=== PATIENT | male | born 1965 | race American Indian/Alaskan Native ===

== ENCOUNTER 2017-03-14 15:54 | Emergency (ER) | payer SELFPAY ==
[2017-03-14 16:02] VITALS: BP 153/91; PULSE 100; RESP 20; TEMP 99; O2SAT 100
--- NOTE | 2017-03-14 16:30 | C.PDOC ---
History Of Present Illness 52 y/o male presents to ED with complaints of toothache and swelling for 5 days. Patient states he tried to go to dentist today but was unable to secondary to insurance. Patient states he noted cracked tooth before but swelling began recently. denies fever, sob, difficulty swallowing and has not taken pain medication. No other complaints at this time. Time Seen by Provider: 03/14/17 16:10 Chief Complaint (Nursing): Dental Pain History Per: Patient History/Exam Limitations: no limitations Onset/Duration Of Symptoms: Days Current Symptoms Are (Timing): Still Present Past Medical History Reviewed: Historical Data, Nursing Documentation, Vital Signs Vital Signs: Last Vital Signs Temp 99 F 03/14/17 15:58 Pulse 100 H 03/14/17 15:58 Resp 20 03/14/17 15:58 BP 153/91 H 03/14/17 15:58 Pulse Ox 100 03/16/17 21:35 Family History: States: No Known Family Hx - Social History Hx Alcohol Use: Yes Hx Substance Use: No - Immunization History Hx Tetanus Toxoid Vaccination: No Hx Influenza Vaccination: No Hx Pneumococcal Vaccination: No Review Of Systems Except As Marked, All Systems Reviewed And Found Negative. Constitutional: Negative for: Fever, Chills ENT: Positive for: Mouth Pain Respiratory: Negative for: Shortness of Breath Skin: Negative for: Rash Physical Exam - Physical Exam Appears: Well, Non-toxic, No Acute Distress Skin: Normal Color, Warm Head: Atraumatic, Normacephalic Eye(s): bilateral: Normal Inspection, EOMI Nose: Normal Oral Mucosa: Moist Teeth: Tender To Palpation, Other (Poor dentition, missing most of teeth) Gingiva: Erythema, Swelling, Tender, Abscess (To right maxillary premolar) Throat: Normal, No Erythema, No Exudate Neck: Normal ROM, Supple Lymphatic: Normal Exam Chest: Symmetrical Cardiovascular: Rhythm Regular Respiratory: Normal Breath Sounds, No Accessory Muscle Use Neurological/Psych: Oriented x3, Normal Speech ED Course And Treatment O2 Sat by Pulse Oximetry: 100 (RA) Pulse Ox Interpretation: Normal Progress Note: Patient instructed to follow up with dentist in 1-2 days. Discussed signs and symtpoms of concern and to return to ER if they arise. CAse discussed with Dr. Carvalho who agreed with plan and treatment. Reevaluation Time: 16:15 Reassessment Condition: Improved Disposition - Disposition Referrals: [facility] [Outside] Katarzyna Hayes DMD [Staff Provider] - Disposition: HOME/ ROUTINE Disposition Time: 16:27 Condition: STABLE Additional Instructions: Follow up with dentist in 1-3 days without fail for further evaluation. Take medications as prescribed. Return to the emergency department at any time if symptoms persist or worsen. Prescriptions: Clindamycin [Cleocin] 300 mg PO QID #28 cap Naproxen [Naprosyn] 1 tab PO BID PRN #20 tab PRN Reason: Pain traMADol [Ultram] 50 mg PO Q8 #20 tab Instructions: Dental Abscess (ED) - Clinical Impression Clinical Impression: Dental abscess - Scribe Statement The provider has reviewed the documentation as recorded by the Katiblaurie Ngo All medical record entries made by the Katiblaurie were at my direction and personally dictated by me. I have reviewed the chart and agree that the record accurately reflects my personal performance of the history, physical exam, medical decision making, and the department course for this patient. I have also personally directed, reviewed, and agree with the discharge instructions and disposition.
== END 2017-03-14 16:37 | disposition home or self-care (01) ==
LOC: C.ER 15:54
DX: K04.7 Periapical abscess without sinus (principal)

== ENCOUNTER 2017-11-26 14:49 | Emergency (ER) | payer MEDICAID ==
[2017-11-26] MEDS ORDERED: Sodium Chloride 0.9% 1,000 ML IV ONE (15:20)
[2017-11-26 15:42] LABS: BASO # 0.1 K/uL (0.0-0.2); BASO % 0.8 % (0.0-2.0); EOS # 0.1 K/uL (0.0-0.7); EOS % 1.4 % (0.0-4.0); HEMOGLOBIN 14.6 g/dL (12.0-18.0); LYMPH # 1.9 K/uL (1.0-4.3); LYMPH % 29.1 % (20.0-40.0); MEAN CELL VOLUME 73.9 fL (80.0-94.0); MEAN CORPUSCULAR HEMOGLOBIN 25.3 pg (27.0-31.0); MEAN CORPUSCULAR HGB CONC 34.3 g/dL (33.0-37.0); MEAN PLATELET VOLUME 8.6 fL (7.2-11.7); MONO # 0.6 K/uL (0.0-0.8); MONO % 8.5 % (0.0-10.0); NEUT # 3.9 K/uL (1.8-7.0); NEUT % 60.2 % (50.0-75.0); NRBC % 0.4 % (0.0-2.0); RBC 5.78 Mil/uL (4.40-5.90); RED CELL DISTRIBUTION WIDTH 12.8 % (11.5-14.5); WHITE BLOOD COUNT 6.5 K/uL (4.8-10.8)
[2017-11-26 15:51] LABS: CALCIUM 9.3 mg/dl (8.6-10.4); GFR AFRICAN-AMERICAN > 60; GFR NON-AFRICAN AMERICAN > 60
[2017-11-26 15:58] LABS: ALB/GLOB RATIO 1.1 (1.0-2.1); ALBUMIN 4.3 g/dL (3.5-5.0); ALT/SGPT < 6 U/L (21-72); AST/SGOT 35 U/L (17-59); BLOOD UREA NITROGEN 11 mg/dL (9-20); LIPASE < 10 U/L (23-300)
[2017-11-26 15:59] LABS: PROTHROMBIN TIME 11.2 SECONDS (9.7-12.2)
[2017-11-26] MEDS ORDERED: Sodium Chloride 0.9% 1,000 ML ONE (16:10)
[2017-11-26] MEDS ORDERED: Alum-Mag Hydrox-Simethicone Susp (30 mL) PO STA (16:54)
--- NOTE | 2017-11-26 17:04 | RAD ---
Abdomen four views History: Abdominal pain. Comparison: None available Findings: Colonic interposition underneath the left hemidiaphragm. Bibasilar nipple shadows. Small nodular density at left costophrenic angle at the left lung base. Heart size within normal limits. Few distended loops of small bowel in the mid abdomen. Moderate fecal retention in the colon. Scoliotic curvature of the spine. Impression: Nonspecific bowel gas pattern with a few distended loops of small bowel in the upper and mid abdomen. Moderate fecal retention in the colon. Colonic interposition underneath the left hemidiaphragm. Additional findings as above.
[2017-11-26] MEDS ORDERED: Aluminum Hydroxide/Magnesium Hydroxide Susp (30 mL) ONE (17:13)
[2017-11-26] MEDS ORDERED: Alum-Mag Hydrox-Simethicone Susp (30 mL) ONE (17:16)
--- NOTE | 2017-11-26 17:20 | C.PDOC ---
Time Seen by Provider: 11/26/17 15:11 Chief Complaint (Nursing): Abdominal Pain History Per: Patient Onset/Duration Of Symptoms: Days (about 1 week) Current Symptoms Are (Timing): Still Present Severity: Moderate Quality Of Discomfort: Unable To Describe, "Pain" Exacerbating Factors: Food Alleviating Factors: None Last Bowel Movement: Today Additional History Per: Prior Records Past Medical History Reviewed: Historical Data, Nursing Documentation, Vital Signs Vital Signs: Last Vital Signs Temp 98.5 F 11/26/17 15:00 Pulse 103 H 11/26/17 16:16 Resp 18 11/26/17 16:16 BP 146/62 11/26/17 16:16 Pulse Ox 100 11/26/17 16:16 - Medical History PMH: Diabetes Surgical History: No Surg Hx Family History: States: Unknown Family Hx - Social History Hx Alcohol Use: Yes Hx Substance Use: No - Immunization History Hx Tetanus Toxoid Vaccination: No Hx Influenza Vaccination: Yes Hx Pneumococcal Vaccination: No Review Of Systems Except As Marked, All Systems Reviewed And Found Negative. Constitutional: Negative for: Fever, Weakness Respiratory: Negative for: Shortness of Breath, Hemoptysis Gastrointestinal: Positive for: Abdominal Pain. Negative for: Vomiting, Diarrhea, Melena, Hematochezia, Hematemesis Genitourinary: Negative for: Dysuria Musculoskeletal: Negative for: Neck Pain, Back Pain, Leg Pain Skin: Negative for: Rash Neurological: Negative for: Weakness, Numbness Physical Exam - Physical Exam Appears: Non-toxic, No Acute Distress Skin: Normal Color, Warm, Dry, No Rash Head: Atraumatic, Normacephalic Eye(s): bilateral: Normal Inspection, PERRL, EOMI Neck: Normal ROM, Supple Cardiovascular: Rhythm Regular Respiratory: Normal Breath Sounds, No Accessory Muscle Use Gastrointestinal/Abdominal: Soft, Tenderness (epigastric), No Distention, No Guarding, No Rebound Back: No CVA Tenderness Extremity: Normal ROM, No Pedal Edema, No Calf Tenderness Neurological/Psych: Oriented x3, Normal Motor, Normal Sensation ED Course And Treatment - Laboratory Results Result Diagrams: 11/26/17 15:34 11/26/17 15:34 Lab Interpretation: No Acute Changes ECG: Interpreted By Me, Viewed By Me ECG Rhythm: Sinus Tachycardia, Nonspecific Changes Rate From EC O2 Sat by Pulse Oximetry: 100 Pulse Ox Interpretation: Normal - Other Rad Obstructive series X-Ray: Viewed By Me, Read By Radiologist Interpretation: Impression: Nonspecific bowel gas pattern with a few distended loops of small bowel in the upper and mid abdomen. Moderate fecal retention in the colon. Colonic interposition underneath the left hemidiaphragm. Additional findings as above. Progress - Interventions Interventions:: Observation, Intravenous fluid - Medications Administered Oral: Antacid, Antiemetic, H-2 yohannes - Data Reviewed Data Reviewed: Lab, Diagnostic imaging, EKG, Old records - Patient Status Patient status: Mostly improved - Continuity of Care Discussed patient case with:: Patient, ED Nurse - Patient Plan Patient Plan: Discharge, F/U with PCP Disposition Counseled Patient/Family Regarding: Studies Performed, Diagnosis, Need For Followup, Rx Given - Disposition Disposition: HOME/ ROUTINE Disposition Time: 17:22 Condition: IMPROVED Additional Instructions: Drink plenty of fluids. Avoid alcohol. Follow up with your doctor within 1 week for further evaluation and treatment. Return to the ER if you develop fever, vomiting, bloody or black stools, worsening of symptoms or if you have any other concerns. Prescriptions: Pantoprazole Sodium [Protonix] 40 mg PO DAILY #14 ect Polyethylene Glycol 3350 [Miralax] 17 gm PO DAILY #7 packet Instructions: Gastritis (DC) - Clinical Impression Clinical Impression: Fecal retention, Abdominal pain
[2017-11-26 17:41] VITALS: BP 142/81; PULSE 100; RESP 16; TEMP 98.4; O2SAT 99
== END 2017-11-26 17:39 | disposition home or self-care (01) ==
LOC: C.ER 14:49
DX: K59.00 Constipation, unspecified (principal); R10.13 Epigastric pain
CPT/HCPCS: 74022; 80053; 80320; 83690; 84484; 85025; 85610; 85730; 96361; 96374; 99285; C9113; J7040

== ENCOUNTER 2018-07-12 10:17 | Emergency (ER) | payer MEDICAID ==
[2018-07-12] MEDS ORDERED: Sodium Chloride 0.9% 1,000 ML IV ONE (10:33)
--- NOTE | 2018-07-12 10:42 | C.PDOC ---
History Of Present Illness 53-year-old male, whose past medical history includes Diabetes, presents to the ED for evaluation of dizziness. Patient states he has not taken his medication today and his blood sugar may be elevated. He denies fever, chills, syncope, nausea, vomiting, weakness. Time Seen by Provider: 07/12/18 10:22 Chief Complaint (Nursing): Dizziness/Lightheaded History Per: Patient History/Exam Limitations: no limitations Onset/Duration Of Symptoms: Hrs Current Symptoms Are (Timing): Still Present Additional History Per: Patient Past Medical History Reviewed: Historical Data, Nursing Documentation, Vital Signs Vital Signs: Last Vital Signs Temp 97.6 F 07/12/18 10:23 Pulse 119 H 07/12/18 10:23 Resp 18 07/12/18 10:23 BP 106/76 07/12/18 10:23 Pulse Ox 99 07/12/18 10:23 - Medical History PMH: Diabetes Surgical History: No Surg Hx Family History: States: Unknown Family Hx - Social History Hx Alcohol Use: Yes Hx Substance Use: Yes - Immunization History Hx Tetanus Toxoid Vaccination: No Hx Influenza Vaccination: Yes Hx Pneumococcal Vaccination: No Review Of Systems Constitutional: Negative for: Fever, Chills Gastrointestinal: Negative for: Nausea, Vomiting Neurological: Positive for: Dizziness. Negative for: Weakness, Numbness Physical Exam - Physical Exam Appears: Non-toxic, No Acute Distress Skin: Normal Color, Warm, Dry Head: Atraumatic, Normacephalic Eye(s): bilateral: Normal Inspection Ear(s): Bilateral: Normal Oral Mucosa: Moist Neck: Supple Chest: Symmetrical, No Deformity, No Tenderness Cardiovascular: Rhythm Regular, No Murmur Respiratory: Normal Breath Sounds, No Rales, No Rhonchi, No Wheezing Extremity: Normal ROM, Capillary Refill (less than 2 seconds ) Neurological/Psych: Oriented x3, Normal Speech, Normal Cognition Gait: Steady ED Course And Treatment - Laboratory Results Result Diagrams: 07/12/18 10:53 07/12/18 10:53 Lab Interpretation: Abnormal ECG Rhythm: Sinus Tachycardia, Nonspecific Changes ECG Interpretation: No Acute Changes Rate From EC O2 Sat by Pulse Oximetry: 99 (on RA) Pulse Ox Interpretation: Normal - CT Scan/US No standard instances Other Rad Studies (CT/US): Read By Radiologist, Radiology Report Reviewed CT/US Interpretation: FINDINGS: Examination is severely degraded by streak a rtifact due to limited craniectomy with metallic cranioplasty on the right. Asymmetric enlargement of the right ventricle as compared to the left. Limited visualized portions of the study reveal hypodensity adjacent to the temporal horn right ventricle, likely related to ischemic change. Scattered periventricular and subcortical white matter hypodensities, which are nonspecific, but often seen with chronic microvascular ischemic disease. No intracranial hemorrhage is identified. Visualized paranasal sinuses, mastoid air cells, and both orbits appear unremarkable. IMPRESSION: Examination is severely degraded by streak artifact due to limited craniectomy with metallic cranioplasty on the right. Significant portions of the frontal and temporal parietal lobes are not visualized. Asymmetric enlargement of the right ventricle as compared to the left. Limited visualized portions of the study reveal hypodensity adjacent to the temporal horn right ventricle, likely related to age indeterminate ischemia. Additional scattered nonspecific white matter changes. Please note that MRI with diffusion imaging is more sensitive in the detection of acute ischemic event. Progress Note: Bloodwork, urinalysis, CT Head ordered and reviewed. Meclizine PO and IV fluids given. On re-evaluation neuro intact, ambulating with steady gait. patient requesting discharge home and something to eat Reassessment Condition: Improved Disposition Counseled Patient/Family Regarding: Studies Performed, Diagnosis, Need For Followup - Disposition Referrals: [facility] [Outside] [facility] [Outside] Disposition: HOME/ ROUTINE Disposition Time: 13:10 Condition: IMPROVED Additional Instructions: Follow up with clinic for further evaluation Instructions: Hyperglycemia, Adult, Vertigo (a Type of Dizziness) (DC) Forms: [facility] ([facility]) - POA Present On Arrival: None - Clinical Impression Clinical Impression: Dizziness - PA / TECHNICAL ILLUSTRATIONS MAP INKER / Resident Statement MD/DO has reviewed & agrees with the documentation as recorded. - Scribe Statement The provider has reviewed the documentation as recorded by the Scribe (Maria Dolores Rick) All medical record entries made by the Scribe were at my direction and personally dictated by me. I have reviewed the chart and agree that the record accurately reflects my personal performance of the history, physical exam, medical decision making, and the department course for this patient. I have also personally directed, reviewed, and agree with the discharge instructions and disposition.
[2018-07-12 10:58] LABS: BASO # 0.1 K/uL (0.0-0.2); BASO % 0.9 % (0.0-2.0); EOS # 0.1 K/uL (0.0-0.7); EOS % 1.6 % (0.0-4.0); LYMPH # 1.4 K/uL (1.0-4.3); LYMPH % 21.8 % (20.0-40.0); MEAN CELL VOLUME 73.8 fL (80.0-94.0); MEAN CORPUSCULAR HEMOGLOBIN 24.7 pg (27.0-31.0); MEAN CORPUSCULAR HGB CONC 33.5 g/dL (33.0-37.0); MEAN PLATELET VOLUME 7.8 fL (7.2-11.7); MONO # 0.4 K/uL (0.0-0.8); MONO % 6.7 % (0.0-10.0); NEUT # 4.4 K/uL (1.8-7.0); NRBC % 0.1 % (0.0-2.0); RBC 5.68 Mil/uL (4.40-5.90); RED CELL DISTRIBUTION WIDTH 13.5 % (11.5-14.5); WHITE BLOOD COUNT 6.4 K/uL (4.8-10.8)
[2018-07-12 11:19] LABS: ALB/GLOB RATIO 1.5 (1.0-2.1); ALT/SGPT 17 U/L (21-72); AST/SGOT 11 U/L (17-59); BLOOD UREA NITROGEN 14 mg/dL (9-20); CALCIUM 9.1 mg/dl (8.6-10.4); GFR NON-AFRICAN AMERICAN > 60
[2018-07-12 11:28] LABS: CK-MB 0.46 ng/mL (0.0-3.38)
--- NOTE | 2018-07-12 12:04 | CT ---
Date of service: 07/12/2018 PROCEDURE: CT HEAD WITHOUT CONTRAST. HISTORY: R/O Bleed COMPARISON: None available. TECHNIQUE: Axial computed tomography images were obtained through the head/brain without intravenous contrast. Radiation dose: Total exam DLP = 1104.54 mGy-cm. This CT exam was performed using one or more of the following dose reduction techniques: Automated exposure control, adjustment of the mA and/or kV according to patient size, and/or use of iterative reconstruction technique. FINDINGS: Examination is severely degraded by streak artifact due to limited craniectomy with metallic cranioplasty on the right. Asymmetric enlargement of the right ventricle as compared to the left. Limited visualized portions of the study reveal hypodensity adjacent to the temporal horn right ventricle, likely related to ischemic change. Scattered periventricular and subcortical white matter hypodensities, which are nonspecific, but often seen with chronic microvascular ischemic disease. No intracranial hemorrhage is identified. Visualized paranasal sinuses, mastoid air cells, and both orbits appear unremarkable. IMPRESSION: Examination is severely degraded by streak artifact due to limited craniectomy with metallic cranioplasty on the right. Significant portions of the frontal and temporal parietal lobes are not visualized. Asymmetric enlargement of the right ventricle as compared to the left. Limited visualized portions of the study reveal hypodensity adjacent to the temporal horn right ventricle, likely related to age indeterminate ischemia. Additional scattered nonspecific white matter changes. Please note that MRI with diffusion imaging is more sensitive in the detection of acute ischemic event.
[2018-07-12 13:02] VITALS: BP 119/74; PULSE 100; RESP 16; TEMP 98.4
[2018-07-12 13:04] VITALS: O2SAT 99
--- NOTE | 2018-07-13 15:33 | CARD ---
APPROVED REPORT Date of service: 07/12/2018 EKG Measurement Heart [id number] CO [id number] <Conclusion> Sinus tachycardia Possible Left atrial enlargement Borderline ECG
== END 2018-07-12 14:09 | disposition home or self-care (01) ==
LOC: C.ER 10:17
DX: R42 Dizziness and giddiness (principal); E11.9 Type 2 diabetes mellitus without complications
CPT/HCPCS: 70450; 80053; 82553; 82948; 84484; 85025; 93005; 96360; 99285; J7030